=== PATIENT | male | born 1945 | race Caucasian/White ===

== ENCOUNTER 2019-06-29 03:06 | Emergency (ER) | payer MEDICARE ==
[~2019-06-29] VITALS: Ht 172.7 cm; Wt 85.0 kg
--- NOTE | 2019-06-29 03:17 | NUR ---
interpretor on md cell phone : stefan ()missed her number() abd nausea after eating food.
--- NOTE | 2019-06-29 03:23 | NUR ---
pt reports he has "convulsions" no loc. pt is cold, blanket provided. call light in place and side rails up.
--- NOTE | 2019-06-29 03:54 | NUR ---
pt instructed to give urine sample. call light in place, no needs, adjusted hob and dimmed lights.
[2019-06-29 04:05] LABS: BASOPHILS # (AUTO) 0.03 x10^3/uL (0-0.1); BASOPHILS % (AUTO) 0 % (0-1); EOSINOPHILS # (AUTO) 0.01 x10^3/uL (0-0.4); EOSINOPHILS % (AUTO) 0 % (1-7); LYMPHOCYTES # (AUTO) 1.89 x10^3/uL (1-3.4); LYMPHOCYTES % (AUTO) 21 % (22-44); MD NO; MEAN CORPUSCULAR HEMOGLOBIN 29.5 pg (27.5-34.5); MEAN CORPUSCULAR HGB CONC 32.7 g/dL (33.2-36.2); MEAN CORPUSCULAR VOLUME 90.3 fL (81-97); MEAN PLATELET VOLUME 8.4 fL (7.4-10.4); MONOCYTES # (AUTO) 0.47 x10^3/uL (0.2-0.8); MONOCYTES % (AUTO) 5 % (2-9); NEUTROPHILS # (AUTO) 6.63 x10^3/uL (1.8-6.8); NEUTROPHILS % (AUTO) 74 % (42-75); PLATELET COUNT 235 x10^3/uL (130-400); RED BLOOD COUNT 5.37 x10^6/uL (4.38-5.82); RED CELL DISTRIBUTION WIDTH 13.8 % (9.4-14.8)
[2019-06-29 04:10] LABS: ALANINE AMINOTRANSFERASE 192 U/L (12-78); ALBUMIN 3.1 g/dL (3.4-5.0); ANION GAP 7 mmol/L (5-15); CALCIUM 8.7 mg/dL (8.5-10.1); CHLORIDE 104 mmol/L (98-107)
[2019-06-29 04:15] LABS: ALKALINE PHOSPHATASE 66 U/L (45-117); BILIRUBIN,TOTAL 0.4 mg/dL (0.2-1.0); CREATININE 1.25 mg/dL (0.7-1.3); TOTAL PROTEIN 7.6 g/dL (6.4-8.2); TROPONIN I < 0.015 ng/mL (0.000-0.045)
--- NOTE | 2019-06-29 04:56 | NUR ---
pt has no current needs, side rails up, collected ua, sent to lab. awaiting cxr, pt and updated on poc.
[2019-06-29 05:14] LABS: MICROSCOPIC AUTO
[2019-06-29 05:15] LABS: CULTURE INDICATED? NO
[2019-06-29 06:14] VITALS: BP 102/54
--- NOTE | 2019-06-29 06:14 | NUR ---
no current needs, pt sleeping, vss. awaiting labs.
--- NOTE | 2019-06-29 06:53 | NUR ---
REPORT TO SHAHLA MORRIS
[2019-06-29 06:59] LABS: TROPONIN I < 0.015 ng/mL (0.000-0.045)
== END 2019-06-29 07:48 | disposition home or self-care (01) ==
LOC: ED 06:46
DX: R53.1 Weakness (principal); R11.0 Nausea
CPT/HCPCS: 36415; 71045; 80053; 81001; 83690; 84484; 85025; 93005; 99284

== ENCOUNTER → 2019-09-13 | Outpatient (CLI) | payer MEDICARE ==
[~2019-09-13] MED LIST: HYDR-3237 PO
== END | disposition home or self-care (01) ==
LOC: CFH 12:09
PROVIDERS: ATTEND Family Medicine
DX: K57.30 Diverticulosis of large intestine without perforation or abscess without bleeding (principal); M48.061 Spinal stenosis, lumbar region without neurogenic claudication; J98.11 Atelectasis
CPT/HCPCS: 74176

== ENCOUNTER 2019-09-15 16:09 | Inpatient (IN) | payer MEDICARE ==
[~2019-09-15] VITALS: Ht 162.6 cm; Wt 80.1 kg
[2019-09-15] MEDS ORDERED: SODIUM CHLORIDE 0.9% 1,000ML IVBOLUS ONE (16:30)
[2019-09-15] MEDS ORDERED: SODIUM CHLORIDE FLUSH 10ML SYR IVF ONE (16:30)
[2019-09-15 16:39] LABS: BASOPHILS # (AUTO) 0.02 x10^3/uL (0-0.1); BASOPHILS % (AUTO) 0 % (0-1); EOSINOPHILS # (AUTO) 0.07 x10^3/uL (0-0.4); EOSINOPHILS % (AUTO) 1 % (1-7); LYMPHOCYTES # (AUTO) 2.26 x10^3/uL (1-3.4); LYMPHOCYTES % (AUTO) 27 % (22-44); MD NO; MEAN CORPUSCULAR HEMOGLOBIN 29.2 pg (27.5-34.5); MEAN CORPUSCULAR HGB CONC 32.2 g/dL (33.2-36.2); MEAN CORPUSCULAR VOLUME 90.6 fL (81-97); MEAN PLATELET VOLUME 8.4 fL (7.4-10.4); MONOCYTES # (AUTO) 0.63 x10^3/uL (0.2-0.8); MONOCYTES % (AUTO) 8 % (2-9); NEUTROPHILS # (AUTO) 5.29 x10^3/uL (1.8-6.8); NEUTROPHILS % (AUTO) 64 % (42-75); PLATELET COUNT 249 x10^3/uL (130-400); RED BLOOD COUNT 4.88 x10^6/uL (4.38-5.82)
[2019-09-15] MEDS ORDERED: LIDOCAINE 2%, 20ML ONE (16:45)
[2019-09-15] MEDS ORDERED: CEFAZOLIN 1,000 MG ONE (16:45)
[2019-09-15] MEDS ORDERED: CEFAZOLIN PMX 1GM/50ML 50 ML ONE (16:45)
[2019-09-15] MEDS ORDERED: FENTANYL PF 100 MCG/2ML ONE (16:45)
[2019-09-15] MEDS ORDERED: MIDAZOLAM 1 MG/ML, 5ML ONE (16:45)
[2019-09-15] MEDS: SODIUM CHLORIDE 0.9% 1,000 ML IV SCH (16:49)
[2019-09-15 16:50] LABS: ALANINE AMINOTRANSFERASE 80 U/L (12-78); ALBUMIN 3.1 g/dL (3.4-5.0); ANION GAP 8 mmol/L (5-15); CHLORIDE 105 mmol/L (98-107); CREATININE 1.21 mg/dL (0.7-1.3)
[2019-09-15 16:54] LABS: ALKALINE PHOSPHATASE 109 U/L (45-117); BILIRUBIN,TOTAL 0.4 mg/dL (0.2-1.0); TOTAL PROTEIN 7.7 g/dL (6.4-8.2); TROPONIN I < 0.015 ng/mL (0.000-0.045)
[2019-09-15 16:55] LABS: CALCIUM 8.7 mg/dL (8.5-10.1)
[2019-09-15] MEDS ORDERED: CEFAZOLIN PMX 1GM/50ML 50 ML IVPB ONE (17:00)
[2019-09-15] MEDS ORDERED: ONDANSETRON 2MG/ML, 2ML IVPush PRN (17:30)
[2019-09-15] MEDS ORDERED: ONDANSETRON ODT 4 MG PO PRN (17:30)
--- NOTE | 2019-09-15 17:46 | NUR ---
SBAR HAND-OFF REPORT GIVEN TO BENZENE OPERATOR RN UPON DELIVERY OF PATIENT TO BENZENE OPERATOR. SBAR TELEPHONE HAND-OFF REPORT GIVEN TO ARTURO ZAMBRANO ON TELE.
[2019-09-15] MEDS ORDERED: DOPAMINE/D5W PMX 250 ML ONE (17:56)
[2019-09-15 18:14] LABS: MICROSCOPIC NOT IND
[2019-09-15 18:27] LABS: CULTURE INDICATED? NO
[2019-09-15] MEDS ORDERED: HOLD MEDICATION MC PRN (19:00)
[2019-09-15] MEDS ORDERED: HYDROcodone/APAP 5/325 TABLET PO PRN (19:00)
[2019-09-15 19:15] VITALS: BP 102/65
[2019-09-15 19:50] VITALS: BP 107/57
[2019-09-15] MEDS: SODIUM CHLORIDE FLUSH 10ML SYR IVF SCH (19:50)
[2019-09-16] MEDS: CEFAZOLIN PMX 1GM/50ML 50 ML IVPB SCH ×2 (00:16→09:30)
[2019-09-16 00:26] VITALS: BP 100/63
[2019-09-16] MEDS: SODIUM CHLORIDE 0.9% 1,000 ML IV SCH ×2 (00:50→09:14)
[2019-09-16 05:32] LABS: ALANINE AMINOTRANSFERASE 70 U/L (12-78); ALBUMIN 2.6 g/dL (3.4-5.0); ANION GAP 9 mmol/L (5-15); CALCIUM 7.9 mg/dL (8.5-10.1); CHLORIDE 109 mmol/L (98-107)
[2019-09-16 05:34] LABS: ALKALINE PHOSPHATASE 104 U/L (45-117); BILIRUBIN,TOTAL 0.6 mg/dL (0.2-1.0); TOTAL PROTEIN 6.7 g/dL (6.4-8.2)
[2019-09-16 05:43] LABS: BASOPHILS # (AUTO) 0.03 x10^3/uL (0-0.1); BASOPHILS % (AUTO) 0 % (0-1); EOSINOPHILS # (AUTO) 0.09 x10^3/uL (0-0.4); EOSINOPHILS % (AUTO) 1 % (1-7); LYMPHOCYTES # (AUTO) 1.97 x10^3/uL (1-3.4); LYMPHOCYTES % (AUTO) 27 % (22-44); MD NO; MEAN CORPUSCULAR HEMOGLOBIN 29.4 pg (27.5-34.5); MEAN CORPUSCULAR HGB CONC 32.7 g/dL (33.2-36.2); MEAN CORPUSCULAR VOLUME 89.9 fL (81-97); MEAN PLATELET VOLUME 8.7 fL (7.4-10.4); MONOCYTES # (AUTO) 0.66 x10^3/uL (0.2-0.8); MONOCYTES % (AUTO) 9 % (2-9); NEUTROPHILS # (AUTO) 4.65 x10^3/uL (1.8-6.8); NEUTROPHILS % (AUTO) 63 % (42-75); PLATELET COUNT 217 x10^3/uL (130-400); RED BLOOD COUNT 4.58 x10^6/uL (4.38-5.82); RED CELL DISTRIBUTION WIDTH 14.1 % (9.4-14.8)
[2019-09-16 08:49] VITALS: BP 107/68
[2019-09-16] MEDS: SODIUM CHLORIDE FLUSH 10ML SYR IVF SCH (09:32)
== END 2019-09-16 13:18 | disposition home or self-care (01) | DRG 260 ==
LOC: ED 16:20 → EDIP 17:30 → 5SO 18:57
PROVIDERS: ADMIT Family Medicine; ATTEND Family Medicine
PROC: 02WA0MZ Revision of Cardiac Lead in Heart, Open Approach (ICD-10-PCS; principal; 2019-09-15)
PROC: 02HK3JZ Insertion of Pacemaker Lead into Right Ventricle, Percutaneous Approach (ICD-10-PCS; 2019-09-15)
DX: T82.120A Displacement of cardiac electrode, initial encounter (principal); I49.01 Ventricular fibrillation; J98.11 Atelectasis; I25.10 Atherosclerotic heart disease of native coronary artery without angina pectoris; K59.00 Constipation, unspecified; Y83.8 Other surgical procedures as the cause of abnormal reaction of the patient, or of later complication, without mention of misadventure at the time of the procedure; Y92.89 Other specified places as the place of occurrence of the external cause; Z87.891 Personal history of nicotine dependence; Z95.0 Presence of cardiac pacemaker
CPT/HCPCS: 33216; 36415; 71045; 74176; 80053; 81003; 84484; 85025; 92953; 93005; 99156; 99157; 99291; C1779; C1785; C1892; G0378; J0690; J1265; J2250; J3010; J7030

== ENCOUNTER → 2020-12-21 | Outpatient (CLI) | payer MEDICARE | END | disposition home or self-care (01) | LOC: CVU 10:45 | PROVIDERS: ATTEND Internal Medicine Cardiovascular Disease | DX: I08.3 Combined rheumatic disorders of mitral, aortic and tricuspid valves (principal); I44.2 Atrioventricular block, complete | CPT/HCPCS: 93306 ==